=== PATIENT | female | born 1935 | race Caucasian/White ===

== ENCOUNTER 2018-10-25 15:39 | Inpatient (IN) | payer BC, MEDICARE, OTHER ==
[~2018-10-25] VITALS: Ht 165.1 cm; Wt 86.4 kg
[~2018-10-25 15:39] MED LIST: OXYC-138 PO
[2018-10-25] MEDS ORDERED: normal saline 1000ML IV soln IVB ONE (16:10)
[2018-10-25] MEDS ORDERED: CefTRIAXone 2gm/D5W 50ml 50 ML IV ONE (16:10)
[2018-10-25] MEDS ORDERED: acetaminophen 325mg tablet PO ONE (16:30)
[2018-10-25 16:43] LABS: BASOPHILS # (AUTO) 0.1 X10'3 (0-0.2); BASOPHILS % (AUTO) 0.6 % (0-1); EOSINOPHILS % (AUTO) 0.2 % (0-6); HEMATOCRIT 34.3 % (35.0-45.0); HEMOGLOBIN 11.7 g/dl (12.0-16.0); LYMPHOCYTES # (AUTO) 0.6 X10'3 (1.1-4.8); LYMPHOCYTES % (AUTO) 5.1 % (21-51); MEAN CORPUSCULAR HEMOGLOBIN 30.4 PG (27.0-31.0); MEAN CORPUSCULAR HGB CONC 34.1 g/dL (33.0-36.5); MEAN CORPUSCULAR VOLUME 89.2 FL (78-98); MONOCYTES # (AUTO) 0.1 X10'3 (0-0.9); NEUTROPHILS # (AUTO) 11.2 X10'3 (1.8-7.7); NEUTROPHILS % (AUTO) 93.1 % (42-75); PLATELET COUNT 307 X10'3 (140-440); RED BLOOD COUNT 3.85 X10'6 (4.20-5.60); RED CELL DISTRIBUTION WIDTH 15.2 % (11.5-14.5)
[2018-10-25] MEDS ORDERED: ondansetron/PF 4mg/2ml inj IV ONE (16:55)
[2018-10-25 17:00] LABS: PARTIAL THROMBOPLASTIN TIME 29 SECONDS (22-32)
[2018-10-25 17:02] LABS: ALANINE AMINOTRANSFERASE 43 U/L (12-78); ALBUMIN 3.3 G/DL (3.4-5.0); ALBUMIN/GLOBULIN RATIO 0.7 (1.1-1.5); ALKALINE PHOSPHATASE 447 IU/L (46-116); ANION GAP 7 (8-16); ASPARTATE AMINO TRANSFERASE 34 U/L (10-37); BILIRUBIN,TOTAL 0.9 MG/DL (0.1-1.0); BLOOD UREA NITROGEN 27 MG/DL (7-18); CALCIUM 9.5 MG/DL (8.5-10.1); CHLORIDE 99 MMOL/L (99-107); CREATININE 1.23 MG/DL (0.40-0.90); POTASSIUM 4.1 MMOL/L (3.5-5.1); SODIUM 134 MMOL/L (135-145); TOTAL CARBON DIOXIDE 27.9 MMOL/L (24-32); TOTAL PROTEIN 8.3 G/DL (6.4-8.2); eGFR 42 ML/MIN
[2018-10-25 17:06] LABS: GLUCOSE 115 MG/DL (70-104)
[2018-10-25 17:18] LABS: CLARITY,URINE CLOUDY (Clear); COLOR,URINE YELLOW (Yellow); GLUCOSE, URINE NEGATIVE (Neg); KETONES,URINE NEGATIVE (Neg); LEUKOCYTE ESTERASE ,URINE SMALL (Neg); NITRITES, URINE POSITIVE (Neg); OCCULT BLOOD,URINE MODERATE (Neg); PH,URINE 6.5 (4.8-8.0); PROTEIN,URINE 30 mg/dl (Neg); UROBILINOGEN,URINE 0.2 E.U/dL (0.2-1.0)
[2018-10-25 17:20] LABS: UA COLLECTION TYPE OTHER
[2018-10-25] MEDS ORDERED: DILT240C PO (17:39)
[2018-10-25] MEDS ORDERED: NITR100C11 PO (17:39)
[2018-10-25] MEDS ORDERED: GABA600T13 PO (17:39)
[2018-10-25] MEDS ORDERED: FERR325T32 PO (17:39)
[2018-10-25] MEDS ORDERED: HYDR-3972 PO (17:39)
[2018-10-25] MEDS ORDERED: OMEP-50 PO (17:39)
[2018-10-25] MEDS ORDERED: TRIA1CAP6 PO (17:39)
[2018-10-25 17:44] LABS: BACTERIA,URINE 4+ /HPF (Neg); WBC CLUMPS,URINE FEW /HPF (NEGATIVE); WBC,URINE TNTC /HPF (0-4)
[2018-10-25 17:45] LABS: RBC,URINE 0-2 /HPF (0-2)
[2018-10-25] MEDS ORDERED: potassium Cl 40MEQ/NS 500ml 500 ML IV PRN (17:45)
[2018-10-25] MEDS ORDERED: potassium CL 10mEq/100ml bag 100 ML IV PRN (17:45)
[2018-10-25] MEDS ORDERED: magnesium Cl slow-release 64mg tablet PO PRN (17:45)
[2018-10-25] MEDS ORDERED: magnesium hydroxide 30ml (MOM) UD suspension PO PRN (17:45)
[2018-10-25] MEDS ORDERED: magnesium 4gm in 100ml NS 100 ML IV PRN (17:45)
[2018-10-25] MEDS ORDERED: acetaminophen 325mg tablet PO PRN (17:45)
[2018-10-25] MEDS ORDERED: magnesium 2GM in 50ml NS 50 ML IV PRN (17:45)
[2018-10-25] MEDS ORDERED: mag hydrox/Alum hydrox/simeth 30ml oral suspension PO PRN (17:45)
[2018-10-25] MEDS ORDERED: ondansetron/PF 4mg/2ml inj IV PRN (17:45)
[2018-10-25] MEDS ORDERED: potassium Cl 20 mEq SR tablet PO PRN (17:45)
[2018-10-25 17:46] LABS: MUCUS STRANDS FEW /LPF (Neg); SQUAMOUS EPITHELIAL CELL,UR FEW /LPF (FEW)
--- NOTE | 2018-10-25 17:59 | NUR ---
PT SPO2% 86-92% ON FINGERS, PT HANDS COLD, PLACED PULSE OX ON EAR AND SPO2% 94% WILL CONTINUE TO MONITOR AND GET ORDER FOR OXYGEN IF NEEDED.
[2018-10-25] MEDS: normal saline 1000ml 1,000 ML IV SCH (18:04)
[2018-10-25] MEDS: piperacillin/tazo 3.375gm/50ml 50 ML IV SCH ×2 (18:05→21:16)
--- NOTE | 2018-10-25 18:45 | NUR ---
PT NOT WAKING UP ENOUGH TO ANSWER QUESTIONS PERTAINING TO MEDICAL HX. PT VERY WEAK AT THIS TIME.
--- NOTE | 2018-10-25 20:34 | NUR ---
pt arrived on the floor at 2029, ambulatory with 4ww in no distress and verbally responsive
[2018-10-25 20:45] VITALS: BP 117/48
[2018-10-25] MEDS: gabapentin 300mg capsule PO SCH (21:16)
[2018-10-25] MEDS: ferrous sulfate 325mg tablet PO SCH (21:16)
[2018-10-25] MEDS: heparin, porcine 5000 units/ml vial SQ SCH (21:18)
--- NOTE | 2018-10-25 22:17 | NUR ---
unable to do pt's admission, pt is very weak, and sleepy and not able to provide medical hx
[2018-10-26] VITALS: BP 110/45
[2018-10-26] MEDS: piperacillin/tazo 3.375gm/50ml 50 ML IV SCH ×4 (02:38→19:49)
[2018-10-26 05:48] LABS: BASOPHILS # (AUTO) 0.1 X10'3 (0-0.2); BASOPHILS % (AUTO) 0.2 % (0-1); EOSINOPHILS % (AUTO) 0 % (0-6); HEMATOCRIT 32.5 % (35.0-45.0); LYMPHOCYTES # (AUTO) 1.6 X10'3 (1.1-4.8); LYMPHOCYTES % (AUTO) 7.8 % (21-51); MEAN CORPUSCULAR HEMOGLOBIN 30.3 PG (27.0-31.0); MEAN CORPUSCULAR HGB CONC 33.9 g/dL (33.0-36.5); MEAN CORPUSCULAR VOLUME 89.4 FL (78-98); MEAN PLATELET VOLUME 8.5 FL (7.4-10.4); MONOCYTES # (AUTO) 1.9 X10'3 (0-0.9); MONOCYTES % (AUTO) 9.6 % (2-12); NEUTROPHILS # (AUTO) 16.8 X10'3 (1.8-7.7); NEUTROPHILS % (AUTO) 82.4 % (42-75); PLATELET COUNT 236 X10'3 (140-440); RED BLOOD COUNT 3.64 X10'6 (4.20-5.60); RED CELL DISTRIBUTION WIDTH 15.4 % (11.5-14.5); WHITE BLOOD COUNT 20.4 X10'3 (4.5-11.0)
[2018-10-26 06:24] LABS: ALBUMIN 2.7 G/DL (3.4-5.0); ANION GAP 9 (8-16); BLOOD UREA NITROGEN 30 MG/DL (7-18); BUN/CREATININE RATIO 22.2 (6.6-38.0); CALCIUM 9.3 MG/DL (8.5-10.1); CHLORIDE 103 MMOL/L (99-107); CREATININE 1.35 MG/DL (0.40-0.90); POTASSIUM 3.7 MMOL/L (3.5-5.1); SODIUM 136 MMOL/L (135-145); TOTAL CARBON DIOXIDE 23.6 MMOL/L (24-32); eGFR 37 ML/MIN
[2018-10-26 06:26] LABS: GLUCOSE 97 MG/DL (70-104)
--- NOTE | 2018-10-26 06:34 | NUR ---
Problems reprioritized. Patient report given, questions answered & plan of care reviewed with ELVA Goodson.
[2018-10-26 07:27] LABS: ANISOCYTOSIS 1+; PLATELET ESTIMATE NORMAL; TOTAL CELLS COUNTED 100; TOXIC GRANULATION 1+
[2018-10-26 07:52] VITALS: BP 121/53
[2018-10-26] MEDS: K and/or MAG REPLACEMENT MC SCH (08:00)
[2018-10-26] MEDS: pantoprazole 40mg Tablet.DR PO SCH (08:22)
[2018-10-26] MEDS: ferrous sulfate 325mg tablet PO SCH ×3 (08:23→21:47)
[2018-10-26] MEDS: gabapentin 300mg capsule PO SCH ×3 (08:24→21:48)
[2018-10-26] MEDS: diltiazem CD 120mg capsule (once-daily) PO SCH (08:24)
[2018-10-26] MEDS: heparin, porcine 5000 units/ml vial SQ SCH ×2 (08:25→19:48)
[2018-10-26] MEDS: HYDROcodone/acetaminophen 10/325mg tab PO PRN (09:22)
[2018-10-26] MEDS: normal saline 1000ml 1,000 ML IV SCH (10:25)
[2018-10-26 11:00] VITALS: BP 110/64
--- NOTE | 2018-10-26 15:53 | NUR ---
PAGER ID: [phone] MESSAGE: [phone] [facility] CALLED, BLOOD CULTURE + GRAM NEGATIVE RODS AFTER 13 HR. AEROBIC SX FROM IV START. JODI [id number]
--- NOTE | 2018-10-26 17:33 | NUR ---
PAGER ID: [phone] MESSAGE: [id number] Kenyatta Cedeno Did you get my page about blood culture positive? This pt. developing fine crackles in posterior lower lobes- do you want to stop fluids? please call me [phone]
--- NOTE | 2018-10-26 18:50 | NUR ---
Pt. resting comfortably in recliner chair in room. IVF running per order. Gave report to Ayla STEVENSON.
--- NOTE | 2018-10-26 18:53 | NUR ---
Patient in room [facility]. I have received report from ELVA NASH and had the opportunity to ask questions and assume patient care. Addendum: 10/26/18 at 1853 by Rose Palmer RN Amended: Links added.
[2018-10-26 20:00] VITALS: BP 138/57
[2018-10-26] MEDS: tamsulosin 0.4mg capsule PO SCH (21:47)
[2018-10-27] VITALS: BP 132/57
[2018-10-27] MEDS: piperacillin/tazo 3.375gm/50ml 50 ML IV SCH ×4 (02:15→19:55)
[2018-10-27] MEDS: normal saline 1000ml 1,000 ML IV SCH (04:55)
[2018-10-27 05:55] LABS: BASOPHILS # (AUTO) 0.1 X10'3 (0-0.2); BASOPHILS % (AUTO) 0.5 % (0-1); EOSINOPHILS # (AUTO) 0.1 X10'3 (0-0.9); EOSINOPHILS % (AUTO) 0.9 % (0-6); HEMATOCRIT 31.6 % (35.0-45.0); HEMOGLOBIN 10.5 g/dl (12.0-16.0); MEAN CORPUSCULAR HEMOGLOBIN 29.9 PG (27.0-31.0); MEAN CORPUSCULAR HGB CONC 33.3 g/dL (33.0-36.5); MEAN CORPUSCULAR VOLUME 89.9 FL (78-98); MONOCYTES # (AUTO) 1.2 X10'3 (0-0.9); MONOCYTES % (AUTO) 10.8 % (2-12); NEUTROPHILS # (AUTO) 8.8 X10'3 (1.8-7.7); NEUTROPHILS % (AUTO) 78.8 % (42-75); PLATELET COUNT 236 X10'3 (140-440); RED BLOOD COUNT 3.52 X10'6 (4.20-5.60); RED CELL DISTRIBUTION WIDTH 15.4 % (11.5-14.5); WHITE BLOOD COUNT 11.2 X10'3 (4.5-11.0)
[2018-10-27 06:02] LABS: ALBUMIN 2.6 G/DL (3.4-5.0); ANION GAP 10 (8-16); BLOOD UREA NITROGEN 29 MG/DL (7-18); CALCIUM 8.8 MG/DL (8.5-10.1); CHLORIDE 104 MMOL/L (99-107); CREATININE 1.21 MG/DL (0.40-0.90); MAGNESIUM 2.2 MG/DL (1.5-2.4); POTASSIUM 3.4 MMOL/L (3.5-5.1); SODIUM 137 MMOL/L (135-145); TOTAL CARBON DIOXIDE 23.5 MMOL/L (24-32); eGFR 42 ML/MIN
[2018-10-27 06:03] LABS: GLUCOSE 87 MG/DL (70-104)
--- NOTE | 2018-10-27 06:23 | NUR ---
Problems reprioritized. Patient report given, questions answered & plan of care reviewed with ELVA Goodson. Addendum: 10/27/18 at 0623 by Rose Palmer RN Amended: Links added.
[2018-10-27 07:26] VITALS: BP 122/63
[2018-10-27] MEDS: HYDROcodone/acetaminophen 10/325mg tab PO PRN ×2 (08:45→21:15)
[2018-10-27] MEDS: diltiazem CD 120mg capsule (once-daily) PO SCH (08:45)
[2018-10-27] MEDS: gabapentin 300mg capsule PO SCH ×3 (08:45→21:12)
[2018-10-27] MEDS: heparin, porcine 5000 units/ml vial SQ SCH ×2 (08:46→19:55)
[2018-10-27] MEDS: ferrous sulfate 325mg tablet PO SCH ×3 (08:47→21:12)
[2018-10-27] MEDS: potassium Cl 20 mEq SR tablet PO PRN ×3 (08:48→19:55)
[2018-10-27] MEDS: K and/or MAG REPLACEMENT MC SCH (08:50)
[2018-10-27] MEDS: pantoprazole 40mg Tablet.DR PO SCH (08:57)
--- NOTE | 2018-10-27 09:26 | NUR ---
PT. DID VOID. UNABLE TO CALCULATE URINE [place]. PT FLUSHED. RESIDUAL BLADDER SCAN 235. WILL CONT. TO MONITOR ON MY SHIFT.
--- NOTE | 2018-10-27 10:20 | NUR ---
Pt. voided 300 ml. bladder scanned. No residual. MD aware and states we will continue to monitor.
[2018-10-27] MEDS ORDERED: docusate sod 100mg capsule PO PRN (10:25)
[2018-10-27 12:13] VITALS: BP 139/49
--- NOTE | 2018-10-27 14:19 | NUR ---
residual urine in bladder after void 120
--- NOTE | 2018-10-27 18:54 | NUR ---
Patient in room [facility] 358. I have received report from ELVA Goodson and had the opportunity to ask questions and assume patient care. Addendum: 10/27/18 at 1854 by Rose Palmer RN Amended: Links added.
--- NOTE | 2018-10-27 19:17 | NUR ---
GAVE REPORT TO DELVIN
[2018-10-27 20:00] VITALS: BP 137/61
[2018-10-27] MEDS: tamsulosin 0.4mg capsule PO SCH (21:12)
[2018-10-28] VITALS: BP 137/56
[2018-10-28] MEDS: piperacillin/tazo 3.375gm/50ml 50 ML IV SCH ×2 (01:55→07:30)
[2018-10-28 06:34] LABS: BASOPHILS # (AUTO) 0.1 X10'3 (0-0.2); BASOPHILS % (AUTO) 0.9 % (0-1); EOSINOPHILS # (AUTO) 0.2 X10'3 (0-0.9); EOSINOPHILS % (AUTO) 3.5 % (0-6); HEMATOCRIT 30.1 % (35.0-45.0); HEMOGLOBIN 10.2 g/dl (12.0-16.0); LYMPHOCYTES # (AUTO) 1.4 X10'3 (1.1-4.8); LYMPHOCYTES % (AUTO) 21.2 % (21-51); MEAN CORPUSCULAR HEMOGLOBIN 30.4 PG (27.0-31.0); MEAN CORPUSCULAR HGB CONC 33.9 g/dL (33.0-36.5); MEAN CORPUSCULAR VOLUME 89.8 FL (78-98); MEAN PLATELET VOLUME 9.1 FL (7.4-10.4); MONOCYTES # (AUTO) 0.9 X10'3 (0-0.9); MONOCYTES % (AUTO) 13.3 % (2-12); NEUTROPHILS # (AUTO) 4.2 X10'3 (1.8-7.7); NEUTROPHILS % (AUTO) 61.1 % (42-75); PLATELET COUNT 254 X10'3 (140-440); RED BLOOD COUNT 3.35 X10'6 (4.20-5.60); RED CELL DISTRIBUTION WIDTH 15.2 % (11.5-14.5); WHITE BLOOD COUNT 6.8 X10'3 (4.5-11.0)
--- NOTE | 2018-10-28 06:48 | NUR ---
Problems reprioritized. Patient report given, questions answered & plan of care reviewed with ELVA Bee. Addendum: 10/28/18 at 0648 by Rose Palmer RN Amended: Links added.
[2018-10-28 06:58] LABS: ALBUMIN 2.6 G/DL (3.4-5.0); ANION GAP 10 (8-16); BLOOD UREA NITROGEN 24 MG/DL (7-18); BUN/CREATININE RATIO 22.2 (6.6-38.0); CHLORIDE 107 MMOL/L (99-107); CREATININE 1.08 MG/DL (0.40-0.90); MAGNESIUM 2.1 MG/DL (1.5-2.4); POTASSIUM 4.1 MMOL/L (3.5-5.1); SODIUM 140 MMOL/L (135-145); TOTAL CARBON DIOXIDE 22.6 MMOL/L (24-32); eGFR 48 ML/MIN
[2018-10-28 06:59] LABS: GLUCOSE 76 MG/DL (70-104)
--- NOTE | 2018-10-28 06:59 | NUR ---
Patient in room [facility] 358. I have received report from Ayla STEVENSON and had the opportunity to ask questions and assume patient care.
[2018-10-28] MEDS: pantoprazole 40mg Tablet.DR PO SCH (07:30)
[2018-10-28] MEDS: ferrous sulfate 325mg tablet PO SCH ×2 (07:30→13:19)
[2018-10-28] MEDS: diltiazem CD 120mg capsule (once-daily) PO SCH (07:30)
[2018-10-28] MEDS: gabapentin 300mg capsule PO SCH ×2 (07:30→13:19)
[2018-10-28] MEDS: HYDROcodone/acetaminophen 10/325mg tab PO PRN (07:31)
[2018-10-28] MEDS: heparin, porcine 5000 units/ml vial SQ SCH (07:31)
[2018-10-28] MEDS: K and/or MAG REPLACEMENT MC SCH (08:00)
[2018-10-28 08:55] VITALS: BP 144/64
[2018-10-28] MEDS ORDERED: LEVO750T21 PO (12:25)
[2018-10-28] MEDS ORDERED: tamsulosin capsule PO (12:25)
--- NOTE | 2018-10-28 14:55 | NUR ---
After two post voids patient has 0 ml with bladder scan, Dr. Flood notified. Patient is ok to discharge home and will not require a FC. Patients paper work for discharge will be completed.
--- NOTE | 2018-10-28 15:25 | NUR ---
Patients discharge is completed on nurses end. Patient is waiting on friend for ride home.
--- NOTE | 2018-10-28 15:45 | NUR ---
Patient received her medications from home from the pharmacy. Unable to find shoes, may have left in the EMR.
== END 2018-10-28 16:00 | disposition home or self-care (01) | DRG 871 ==
LOC: ER 15:40 → SUR 3N 20:59
PROVIDERS: ADMIT Internal Medicine; ATTEND Internal Medicine
DX: A41.51 Sepsis due to Escherichia coli [E. coli] (principal); G93.41 Metabolic encephalopathy; N17.9 Acute kidney failure, unspecified; N10 Acute pyelonephritis; E86.0 Dehydration; I10 Essential (primary) hypertension; I48.2 Chronic atrial fibrillation; G89.29 Other chronic pain; M54.9 Dorsalgia, unspecified; I50.9 Heart failure, unspecified; Z88.8 Allergy status to other drugs, medicaments and biological substances; Z85.3 Personal history of malignant neoplasm of breast; Z88.5 Allergy status to narcotic agent; Z91.013 Allergy to seafood
CPT/HCPCS: 36415; 71045; 71250; 76775; 80048; 80053; 81001; 83605; 83735; 83880; 84145; 85025; 85610; 85730; 87040; 87070; 87077; 87088; 87186; 93005; 96365; 96375; 97116; 97161; 97530; 99285; G0378; J0696; J1644; J2405; J2543; J7030

== ENCOUNTER 2019-02-18 09:44 | Outpatient (CLI) | payer OTHER ==
[~2019-02-18 09:44] MED LIST changes: +DILT-94 PO; +FERR325T32 PO; +GABA600T13 PO; +HYDR-3972 PO; +OMEP-50 PO; -OXYC-138 PO; +TRIA1CAP6 PO; +tamsulosin capsule PO
== END 2019-02-18 23:59 | disposition home or self-care (01) ==
LOC: VAS 09:44
PROVIDERS: ATTEND Family Medicine
DX: R60.9 Edema, unspecified (principal)
CPT/HCPCS: 93970

== ENCOUNTER 2022-06-10 08:58 | Emergency (ER) | payer OTHER ==
[~2022-06-10] VITALS: Ht 157.5 cm; Wt 81.0 kg
[~2022-06-10 08:58] MED LIST changes: -OMEP-50 PO; +OMEP20CA16 PO; -TRIA1CAP6 PO; +TRIA1CAP88 PO
[2022-06-10] MEDS ORDERED: normal saline 1000ML IV soln IVB ONE (09:25)
[2022-06-10] MEDS ORDERED: ondansetron/PF 4mg/2ml inj IV ONE (09:25)
[2022-06-10 09:50] LABS: BASOPHILS % (AUTO) 0.4 % (0-1); EOSINOPHILS % (AUTO) 0.3 % (0-6); HEMOGLOBIN 11.5 g/dl (12.0-16.0); LYMPHOCYTES # (AUTO) 0.8 X10'3 (1.1-4.8); LYMPHOCYTES % (AUTO) 10.5 % (21-51); MEAN CORPUSCULAR HEMOGLOBIN 30.6 PG (27.0-31.0); MEAN CORPUSCULAR VOLUME 90.1 FL (78-98); MONOCYTES # (AUTO) 0.7 X10'3 (0-0.9); NEUTROPHILS # (AUTO) 6.5 X10'3 (1.8-7.7); NEUTROPHILS % (AUTO) 79.8 % (42-75); PLATELET COUNT 245 X10'3 (140-440); RED BLOOD COUNT 3.77 X10'6 (4.20-5.60); RED CELL DISTRIBUTION WIDTH 13.7 % (11.5-14.5); WHITE BLOOD COUNT 8.1 X10'3 (4.5-11.0)
[2022-06-10 10:25] LABS: ALANINE AMINOTRANSFERASE 14 U/L (12-78); ALBUMIN 3.1 G/DL (3.4-5.0); ALBUMIN/GLOBULIN RATIO 0.7 (1.1-1.5); ALKALINE PHOSPHATASE 92 IU/L (46-116); ANION GAP 11 (8-16); ASPARTATE AMINO TRANSFERASE 17 U/L (10-37); BILIRUBIN,TOTAL 0.6 MG/DL (0.1-1.0); BLOOD UREA NITROGEN 22 MG/DL (7-18); BUN/CREATININE RATIO 23.9 (6.6-38.0); CALCIUM 9.5 MG/DL (8.5-10.1); CHLORIDE 97 MMOL/L (99-107); CREATININE 0.92 MG/DL (0.40-0.90); GLUCOSE 106 MG/DL (70-104); SODIUM 133 MMOL/L (135-145); TOTAL CARBON DIOXIDE 25.5 MMOL/L (24-32); TOTAL PROTEIN 7.6 G/DL (6.4-8.2); eGFR 58 ML/MIN
[2022-06-10 10:26] LABS: POTASSIUM 2.8 MMOL/L (3.5-5.1)
[2022-06-10] MEDS ORDERED: normal saline 1000ml 1,000 ML IV ONE (10:30)
[2022-06-10] MEDS ORDERED: loperamide 2mg capsule PO ONE (10:30)
[2022-06-10] MEDS ORDERED: POTASSIUM BICARB 20meq eff tab 20 MEQ TABLET.EFF PO ONE (10:30)
[2022-06-10] MEDS ORDERED: potassium Cl 10 mEq/100mL bag IV ONE (10:30)
[2022-06-10] MEDS ORDERED: ONDA4TAB12 PO (10:38)
[2022-06-10] MEDS ORDERED: POTA-207 PO (10:38)
[2022-06-10 10:56] VITALS: BP 148/64
== END 2022-06-10 12:45 | disposition home or self-care (01) ==
LOC: ER 08:59
DX: R19.7 Diarrhea, unspecified (principal); E87.6 Hypokalemia; G89.29 Other chronic pain; M54.50 Low back pain, unspecified; Z91.041 Radiographic dye allergy status; Z88.5 Allergy status to narcotic agent
CPT/HCPCS: 36415; 80053; 85025; 96374; 96375; 99284; J2405; J3480; J7030

== ENCOUNTER 2024-05-13 09:52 | Emergency (ER) | payer OTHER ==
[~2024-05-13] VITALS: Ht 165.1 cm; Wt 81.0 kg
[~2024-05-13 09:52] MED LIST changes: +GABA-1405 PO; -GABA600T13 PO; +ONDA-243 PO
[2024-05-13 09:56] VITALS: TEMP 98.4
[2024-05-13] MEDS ORDERED: HYDR-3965 PO ×2 (12:29→12:32)
[2024-05-13 12:42] VITALS: BP 126/75; PULSE 70; RESP 16; O2SAT 98
== END 2024-05-13 12:45 | disposition home or self-care (01) ==
LOC: ER 09:53
DX: S22.080A Wedge compression fracture of T11-T12 vertebra, initial encounter for closed fracture (principal); Z88.5 Allergy status to narcotic agent; Z91.041 Radiographic dye allergy status; Z98.890 Other specified postprocedural states; W19.XXXA Unspecified fall, initial encounter; Y93.89 Activity, other specified; Y92.89 Other specified places as the place of occurrence of the external cause; Y99.8 Other external cause status
CPT/HCPCS: 72100; 99284

== ENCOUNTER 2024-09-17 09:52 | Emergency (ER) | payer OTHER ==
[~2024-09-17] VITALS: Ht 165.1 cm; Wt 83.2 kg
--- NOTE | 2024-09-17 11:09 | RADIOLOGY REPORT ---
CLINICAL INDICATION: LT.KNEE PAIN TECHNIQUE: 3 radiographic views of the left knee were obtained. Comparison: None FINDINGS/IMPRESSION: There is no evidence of acute fracture or dislocation. Postsurgical changes from medial left knee hemiarthroplasty. Severe tricompartmental knee joint osteo arthrosis. Trace left knee joint effusion.
--- NOTE | 2024-09-17 11:55 | Physician Documentation ---
History of Present Illness ~ Chief Complaint: Knee Pain Stated Complaint: L KNEE PAIN Time Seen by MD: 10:51 Primary Medical Doctor: [facility] Mode of Arrival: EMS, Stretcher HPI 89-year-old female presenting with left knee pain. She states that it started after she feels like she tweaked her knee about four days ago while walking with her walker. She did not fall or hit the knee against anything but she is feels like she stepped on it awkwardly and tweaked it. The patient has a history of two knee replacements-a completely replacement on the right and a partial on the left. Pain radiates down her leg. No other associated symptoms or injuries. Tetanus witin 5 years: Yes Medication Reconciliation Allergies: Coded Allergies: Iodine and Iodide Containing Produc (Verified Allergy, Severe, 09/17/24) morphine (Verified Allergy, Severe, 09/17/24) Uncoded Allergies: CODINE (Allergy, Severe, 07/24/14) SHELL FISH (Allergy, Severe, 07/24/14) Scheduled Diltiazem HCl (Diltiazem 24Hr ER), 1 CAP PO DAILY, (Reported) Ferrous Sulfate (Ferrous Sulfate), 1 TAB PO TID, (Reported) Gabapentin (Gabapentin), 1 TAB PO TID, (Reported) ONDANSETRON ODT 4mg tablet (Ondansetron Odt), 1 TABLET PO Q6H Omeprazole (Omeprazole), 1 CAP PO BID, (Reported) Triamterene/Hydrochlorothiazid (Triamterene-Hctz 37.5-25 Mg Cp), 1 CAP PO QAM, (Reported) [tamsulosin capsule], 0.4 MG PO HS Scheduled PRN Hydrocodone Bit/Acetaminophen (Hydrocodon-Acetaminophn 10-325 tablet), 2 TAB PO Q8H PRN for pain, (Reported) Past Medical History Past Medical History: Chronic Pain, Chronic Back Pain Past Surgical History: orthopedic surgeries Alcohol Use: None Drug Use: none Review of Systems All Other Systems at this time: Reviewed and Negative Physical Exam Vital Signs: Temperature: 98.3, Source: Oral, Heart Rate: 75, Respiratory Rate: 24, BP: 128/58, Pulse Oximetry: 97, Weight: 83.180 Oxygen Flow Rate: 0 Physical Exam I have reviewed the triage vitals. CONST: Well developed and well nourished. In no acute distress HENT: Head Atraumatic EYES: Pupils are equal, round and reactive to light. Normal conjunctiva NECK: Normal range of motion. Supple. CARDIO: Normal rate and regular rhythm. No murmurs, rubs, or gallops. S1, S2. PULM/CHEST: No respiratory distress. Lungs clear to auscultation. No wheeze ABD: Soft and nontender. Nondistended. Bowel sounds normal. No guarding. : Exam deferred MSK: No edema. No deformity. Bilateral knees with midline surgical scars present over the anterior knees. The right knee has normal range of motion on flexion and extension. Left knee with tenderness to palpation specifically over the lateral joint line. There is pain elicited with flexion and extension of the knee. NEURO: Alert and oriented to person, place and time. Moving all extremities SKIN: Warm and dry. PSYCH: Normal mood and affect. Good eye contact. Progress Results/Orders Results/Orders Orders - RENETTA OSMAN MD Knee, Complete (09/17/24 10:18) Completed Orders - RENETTA OSMAN MD Knee, Complete (09/17/24 10:18) Acetaminophen 325mg Tablet (Tylenol Tabl (09/17/24 13:20) Vital Signs 09/17/24 09/17/24 09/17/24 09/17/24 09:56 11:17 11:17 13:16 Temp 98.3 98.3 98.3 Pulse 85 75 75 Resp 17 24 18 19 B/P (MAP) 151/72 128/58 (81) 132/63 (86) Pulse Ox 96 97 97 O2 Flow Rate 0 0 EKG/XRAY/CT/US/VASC/MRI Bone/Soft Tissue X-Ray (Ext.) : Additional Comment CLINICAL INDICATION: LT.KNEE PAIN TECHNIQUE: 3 radiographic views of the left knee were obtained. Comparison: None FINDINGS/IMPRESSION: There is no evidence of acute fracture or dislocation. Postsurgical changes from medial left knee hemiarthroplasty. Severe tricompartmental knee joint osteoarthrosis. Trace left knee joint effusion. Electronically Signed by:TRISTON LYNN MD Date & Time: 09/17/24 1106 Dictated by: TRISTON LYNN MD Medical Decision Making Additional Comment 89-year-old female presenting with left knee pain secondary to monitor injury. X-ray indicated no fractures and no derangements of the surgical hardware. Patient was medicated for pain with acetaminophen in the ED. At this point in time she is able to ambulate with her walker. I advised the patient to elevate the extremity and ice. May continue using her [place] as needed for pain control. Follow up with PCP in the next 2-3 days and return to the ED with any acutely worsening symptoms. Departure Disposition: HOME / SELF CARE / HOMELESS Impression: Primary Impression: Knee pain Additional Impression: Knee osteoarthritis Condition: Improved Discharge Instructions: Arthritis, Acute Knee Pain, Adult Referrals: NO PRIMARY CARE PROVIDER (PCP) Signature Scribe Signature: 1 Attestation: 1 RENETTA OSMAN MD Sep 17, 2024 11:55
[2024-09-17 13:16] VITALS: BP 132/63; PULSE 75; RESP 19; O2SAT 97
[2024-09-17] MEDS: acetaminophen 325mg tablet PO ONE (13:27)
[2024-09-17 13:46] VITALS: TEMP 98.3
== END 2024-09-17 13:52 | disposition home or self-care (01) ==
LOC: ER 09:52
DX: M17.12 Unilateral primary osteoarthritis, left knee (principal); Z88.5 Allergy status to narcotic agent; Z88.8 Allergy status to other drugs, medicaments and biological substances; Z91.041 Radiographic dye allergy status
CPT/HCPCS: 73564; 99283